=== PATIENT | female | born 1995 | race Caucasian/White ===

== ENCOUNTER 2016-10-20 20:01 | Emergency (ER) | payer OTHER ==
[~2016-10-20] VITALS: Ht 160 cm; Wt 70.3 kg
[~2016-10-20 20:01] MED LIST: PRENATAL VITAMI1 T10 PO; VENTOLIN H0.09 MG/Ac IH
[2016-10-20 20:19] VITALS: BP 138/86
--- NOTE | 2016-10-20 22:55 | NUR ---
PT TAKEN TO OF
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
--- NOTE | 2016-10-20 23:12 | NUR ---
Dr. Skinner evaluating patient
--- NOTE | 2016-10-20 23:45 | NUR ---
PT RETURN FROM XRAY
[2016-10-21 00:30] VITALS: BP 125/75
--- NOTE | 2016-10-21 00:31 | NUR ---
Patient discharged with v/s stable. Written and verbal after care instructions given and explained. Patient alert, oriented and verbalized understanding of instructions. Ambulatory with steady gait. All questions addressed prior to discharge. ID band removed. Patient advised to follow up with PMD. Rx of IBUPROFEN 800MG, FLEXERIL 10MG given. Patient educated on indication of medication including possible reaction and side effects. Opportunity to ask questions provided and answered.
== END 2016-10-21 00:31 | disposition home or self-care (01) ==
LOC: MED 20:01
DX: S13.4XXA Sprain of ligaments of cervical spine, initial encounter (principal); J45.909 Unspecified asthma, uncomplicated; M25.561 Pain in right knee; V89.2XXA Person injured in unspecified motor-vehicle accident, traffic, initial encounter; Y93.89 Activity, other specified; Y92.89 Other specified places as the place of occurrence of the external cause; Y99.8 Other external cause status

== ENCOUNTER 2018-08-29 18:22 | Emergency (ER) | payer SELFPAY ==
--- NOTE | 2018-08-29 18:30 | NUR ---
PATIENT LEFT WITHOUT BEING SEEN BY DR. MCKEE. NO FURTHER CARE PROVIDED FOR PATIENT.
== END 2018-08-29 18:30 | disposition left against medical advice (07) ==
LOC: MED 18:22
DX: Z53.21 Procedure and treatment not carried out due to patient leaving prior to being seen by health care provider (principal)

== ENCOUNTER 2019-03-17 15:04 | Emergency (ER) | payer MEDICAID ==
[~2019-03-17] VITALS: Ht 160 cm; Wt 65.8 kg
[2019-03-17 15:13] VITALS: BP 129/85
--- NOTE | 2019-03-17 15:18 | NUR ---
PT AMBULATED TO BED 01
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
[2019-03-17 16:04] VITALS: BP 129/85
--- NOTE | 2019-03-17 16:04 | NUR ---
Patient discharged with v/s stable. Written and verbal after care instructions given and explained. Rx of TYLENOL given. Patient educated on indication of medication including possible reaction and side effects. All questions addressed prior to discharge. ID band removed. Patient advised to follow up with PMD.
== END 2019-03-17 16:04 | disposition home or self-care (01) ==
LOC: MED 15:04
DX: M79.672 Pain in left foot (principal); J45.909 Unspecified asthma, uncomplicated
CPT/HCPCS: 99282

== ENCOUNTER 2019-11-26 03:00 | Emergency (ER) | payer OTHER, SELFPAY ==
[~2019-11-26] VITALS: Ht 160 cm; Wt 68.9 kg
[2019-11-26 03:02] VITALS: BP 140/80
--- NOTE | 2019-11-26 03:16 | NUR ---
PT AMBULATED TO BED #2.
--- NOTE | 2019-11-26 03:22 | NUR ---
24F PT PRESENTS TO ED WITH C/O SOB X 4 DAYS. ALSO PRESENTS WITH DRY NONPRODUCTIVE COUGH. -FEVER. HEADACHE. UPON ASSESSMENT, A/O X4, GCS 15. PERRLA. CBL SOUNDS. RR EVEN AND UNLABORED. ABDOMEN SOFT AND NON TENDER. BOWEL SOUNDS NORMOACTIVE ON ALL QUADRANTS. DENIES N/V/D OR CONSTIPATION. DENIES DYSURIA. PT IS AMBULATORY. PT STATES THAT THEY MAY HAVE DEVELOPED THESE SYMPTOMS BECAUSE SHE JUST FOUND OUT THAT HER ALBULTEROL WAS FOR ALMOST A WEEK NOW. PMHX: ASTHMA RX: ALBUTEROL, CLARITIN POSTIVE FOR COVID SCREENING. PT PLACED IN ISO BED 2. PT WEARING MASK.
--- NOTE | 2019-11-26 03:26 | NUR ---
COVID SWAB COLLECTED AND SENT TO LAB.
[2019-11-26 03:30] VITALS: BP 140/80
--- NOTE | 2019-11-26 03:30 | NUR ---
TAL LUIS AT BEDSIDE EVALUATING PT.
--- NOTE | 2019-11-26 03:56 | NUR ---
Patient discharged with v/s stable. Written and verbal after care instructions given and explained. Patient alert, oriented and verbalized understanding of instructions. Ambulatory with steady gait. All questions addressed prior to discharge. ID band removed. Patient advised to follow up with PMD. Rx of PREDNISONE AND ALBUTEROL given. Patient educated on indication of medication including possible reaction and side effects. Opportunity to ask questions provided and answered.
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
== END 2019-11-26 03:56 | disposition home or self-care (01) ==
LOC: MED 03:00 → EEVIPCON 03:00 → MED 03:56
DX: U07.1 COVID-19 (principal); J45.909 Unspecified asthma, uncomplicated
CPT/HCPCS: 71045; 99284; Q0092; U0003